=== PATIENT | female | born 1995 | race Caucasian/White ===

== ENCOUNTER 2019-03-31 08:00 | Outpatient (CLI) | payer OTHER ==
[2019-03-31 18:23] LABS: BASOPHILS % (AUTO) 0.6 %; EOSINOPHILS # (AUTO) 0.1 10^3/uL (0.0-0.7); EOSINOPHILS % (AUTO) 1.3 %; HGB - HEMOGLOBIN 12.8 g/dL (12.0-16.0); LYMPHOCYTES # (AUTO) 1.1 10^3/uL (1.5-3.5); LYMPHOCYTES % (AUTO) 20.2 %; MEAN CORPUSCULAR HEMOGLOBIN 27.9 pg (27.0-31.0); MEAN CORPUSCULAR HGB CONC 31.1 g/dL (32.0-36.0); MONOCYTES # (AUTO) 0.5 10^3/uL (0.0-1.0); MONOCYTES % (AUTO) 9.7 %; NEUTROPHILS # (AUTO) 3.6 10^3/uL (1.5-6.6); PLT - PLATELET COUNT 320 10^3/uL (130-450); RED BLOOD COUNT 4.58 10^6/uL (4.20-5.40); RED CELL DISTRIBUTION WIDTH 14.1 % (12.0-15.0); WHITE BLOOD COUNT 5.3 x10^3/uL (4.8-10.8)
[2019-03-31 18:42] LABS: ALBUMIN 4.3 g/dL (3.2-5.5); ALBUMIN/GLOBULIN RATIO 1.2 (1.0-2.2); BILIRUBIN,TOTAL 0.7 mg/dL (0.2-1.0); CALCIUM 8.9 mg/dL (8.5-10.3); CREATININE 0.6 mg/dL (0.4-1.0)
== END 2019-03-31 23:59 | disposition home or self-care (01) ==
LOC: LAB.WCP 08:00
PROVIDERS: ATTEND Physician Assistant
DX: Z00.00 Encounter for general adult medical examination without abnormal findings (principal); R10.13 Epigastric pain
CPT/HCPCS: 36415; 80053; 84443; 85025

== ENCOUNTER 2019-05-11 09:56 | Outpatient (CLI) | payer OTHER ==
--- NOTE | 2019-05-11 16:51 | MRI Report ---
Reason: INTERNAL DERANGEMENT LT KNEE Procedure Date: 05/11/2019 Accession Number: [id number] / [id number] Procedure: MRI - Knee LT W/O CPT Code: Final Report FULL RESULT: EXAM: LEFT KNEE MRI WITHOUT CONTRAST EXAM DATE: 05/11/2019 11:15 AM. CLINICAL HISTORY: Left knee internal derangement. COMPARISON: None. TECHNIQUE: Multiplanar, multisequence T1-weighted and fluid-sensitive sequences of the knee without contrast. Other: None. FINDINGS: Bones: No fractures or subluxations. No marrow edema. No bone lesions. Articular Cartilage: Unremarkable. Medial Meniscus: The medial meniscus is intact. Lateral Meniscus: The lateral meniscus is intact. Cruciate Ligaments: The anterior and posterior cruciate ligaments are intact. Collateral Ligaments: The medial collateral and lateral collateral ligamentous structures are intact. Tendons: The quadriceps, patellar, semimembranosus, and popliteus tendons are unremarkable. Musculature: No edema or fatty atrophy. Other: No effusion. No popliteal cyst.No loose bodies.The medial and lateral retinacula are intact. Minimal edema at the lateral portion of Hoffa's fat pad. IMPRESSION: Mild edema in the lateral portion of Hoffa's fat pad that is nonspecific. It is more inferiorly located than one would typically see with Hoffa's fat pad entrapment syndrome or lateral patellofemoral syndrome. RADIA
== END 2019-05-11 09:57 | disposition home or self-care (01) ==
LOC: DI 09:56
PROVIDERS: ATTEND Physician Assistant
DX: M23.92 Unspecified internal derangement of left knee (principal)

== ENCOUNTER 2020-07-21 09:06 | Emergency (ER) | payer OTHER ==
[2020-07-21] MEDS ORDERED: KETOROLAC 60 MG/2 ML VIAL IM STA (11:01)
[2020-07-21] MEDS ORDERED: oxyCODONE 5 MG TABLET PO STA (11:01)
--- NOTE | 2020-07-21 11:06 | ED Physician Documentation ---
History of Present Illness - Stated complaint Stated Complaint: RT CALF PX - Chief complaint Chief Complaint: Ext Problem - History obtained from History obtained from: Patient - History of Present Illness Timing: Yesterday Pain level max: 6 Pain level now: 5 - Additonal information Additional information: Patient is a 25-year-old female who presents to the emergency department with right calf pain. This started yesterday. Has continued today. States it is the posterior lateral aspect of the calf. Better with rest. Worse with walking and standing. No fevers. No chills. No skin changes. Does not recall any injury. 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 No family history of blood clots. Review of Systems Constitutional: denies: Fever, Chills Ears: denies: Ear pain Nose: denies: Rhinorrhea / runny nose, Congestion Throat: denies: Sore throat Cardiac: denies: Chest pain / pressure, Palpitations Respiratory: denies: Dyspnea, Cough, Wheezing Skin: denies: Rash PD PAST MEDICAL HISTORY - Past Medical History Past Medical History: No - Past Surgical History Past Surgical History: No - Present Medications Home Medications: Ambulatory Orders Medication Instructions Recorded Confirmed Ethinyl Estradiol/Drospirenone 1 each PO DAILY 07/21/20 07/21/20 [Latoya 28 Tablet] HYDROcod/ACETAM 5/325 [[place] 5/325] 1 - 2 ea PO Q6H PRN #14 tablet 07/21/20 Pantoprazole [Protonix] 40 mg PO DAILY 07/21/20 07/21/20 Sertraline [Zoloft] 50 mg PO DAILY 07/21/20 07/21/20 - Allergies Allergies/Adverse Reactions: Allergies Allergy/AdvReac Type Severity Reaction Status Date / Time NSAIDS (Non-Steroidal AdvReac Emesis Verified 07/21/20 09:16 Anti-Inflamma - Living Situation Living Situation: reports: With family Living Arrangement: reports: At home - Social History Does the pt have substance abuse?: No - Family History Family history: reports: Non contributory PD ED PE NORMAL - Vitals Vital signs reviewed: Yes - General General: Alert and oriented X 3, No acute distress - HEENT HEENT: Moist mucous membranes - Neck Neck: Supple, no meningeal sign - Cardiac Cardiac: RRR - Respiratory Respiratory: No respiratory distress, Clear bilaterally - Derm Derm: Warm and dry - Extremities Extremities: Other (R calf - TTP over the R posterior, lateral, superior aspect of the calf. mild soft tissue swelling. NVI.) - Neuro Neuro: Alert and oriented X 3 - Psych Psych: Normal mood, Normal affect Results - Vitals Vitals: Vital Signs - 24 hr 07/21/20 07/21/20 09:11 11:46 Temperature 36.4 C L Heart Rate 101 H 76 Respiratory 16 15 Rate Blood Pressure 144/84 H 127/68 O2 Saturation 100 100 Oxygen O2 Source Room air - Rads (name of study) duplex US RLE Radiology: Prelim report reviewed, EMP read contemporaneously, See rad report (no DVT) PD MEDICAL DECISION MAKING - ED course Complexity details: reviewed results, re-evaluated patient, considered differential, d/w patient ED course: No acute findings on ultrasound. No DVT. Appears to have a small hematoma clinically. Placed in an Addy bandage for comfort. She is ambulating well, but with a mild limp. Neurovascularly intact. We will have her follow-up with her PCP as needed for further care and continue supportive care. Patient counseled regarding signs and symptoms for which I believe and urgent re-evaluation would be necessary. Patient with good understanding of and agreement to plan and is comfortable going home at this time Departure - Departure Disposition: 01 Home, Self Care Clinical Impression: Hematoma Condition: Good Instructions: ED Hematoma Follow-Up: TRACI DYE MD [Primary Care Provider] - Within 1 week Prescriptions: HYDROcod/ACETAM 5/325 [[place] 5/325] 1 - 2 ea PO Q6H PRN #14 tablet PRN Reason: Pain Comments: Return if you worsen. Follow up with your doctor for further care. Your ultrasound does not show a DVT today, there is small hematoma over your calf. Discharge Date/Time: 07/21/20 11:47
[2020-07-21 11:48] VITALS: BP 127/68
--- NOTE | 2020-07-21 11:58 | Ultrasound Report ---
PROCEDURE: Duplex Ext Veins Right INDICATIONS: R calf pain, swelling TECHNIQUE: Real-time imaging, as well as color and pulse Doppler interrogation, were performed of the lower extr emity deep veins from the inguinal ligament to the popliteal fossa. COMPARISON: None. FINDINGS: The deep veins are normally compressible, and free of intraluminal thrombus. Color and pu lse Doppler demonstrate normal phasic intraluminal flow. There is normal augmentation response to di stal compression maneuver. IMPRESSION: No sonographic evidence of deep venous thrombosis in the right lower extremity. Reviewed by: Peterson Benton MD on 07/21/2020 11:56 AM [facility] Approved by: Peterson Benton MD on 07/21/2020 11:56 AM [facility] Station ID: [id number]
== END 2020-07-21 11:47 | disposition home or self-care (01) ==
LOC: ED 09:06
DX: S80.11XA Contusion of right lower leg, initial encounter (principal); X58.XXXA Exposure to other specified factors, initial encounter
CPT/HCPCS: 93971; 99283; 99284; A9270

== ENCOUNTER 2020-11-29 09:19 | Emergency (ER) | payer OTHER ==
[2020-11-29 10:24] LABS: BILIRUBIN,URINE NEGATIVE (NEGATIVE); GLUCOSE, URINE (UA) NEGATIVE (NEGATIVE); KETONES,URINE (UA) NEGATIVE (NEGATIVE); LEUKOCYTE ESTERASE, URINE NEGATIVE (NEGATIVE); NITRITE,URINE NEGATIVE (NEGATIVE); OCCULT BLOOD,URINE TRACE-INTA (NEGATIVE); PH,URINE 6.5 PH (5.0-7.5); PROTEIN,URINE NEGATIVE (NEGATIVE); UROBILINOGEN,URINE 0.2 (NORMAL) E.U./dL (NORMAL)
[2020-11-29 10:27] LABS: CLARITY,URINE CLEAR (CLEAR); HCG UR QUAL NEGATIVE
[2020-11-29 10:50] LABS: BASOPHILS % (AUTO) 0.6 %; EOSINOPHILS # (AUTO) 0.1 10^3/uL (0.0-0.7); EOSINOPHILS % (AUTO) 1.1 %; HCT - HEMATOCRIT 37.8 % (37.0-47.0); HGB - HEMOGLOBIN 11.9 g/dL (12.0-16.0); LYMPHOCYTES # (AUTO) 1.5 10^3/uL (1.5-3.5); LYMPHOCYTES % (AUTO) 24.4 %; MEAN CORPUSCULAR HEMOGLOBIN 26.9 pg (27.0-31.0); MEAN CORPUSCULAR HGB CONC 31.5 g/dL (32.0-36.0); MEAN CORPUSCULAR VOLUME 85.5 fL (81.0-99.0); MONOCYTES # (AUTO) 0.5 10^3/uL (0.0-1.0); MONOCYTES % (AUTO) 7.7 %; NEUTROPHILS # (AUTO) 4.1 10^3/uL (1.5-6.6); NEUTROPHILS % (AUTO) 65.9 %; PLT - PLATELET COUNT 376 10^3/uL (130-450); RED BLOOD COUNT 4.42 10^6/uL (4.20-5.40); RED CELL DISTRIBUTION WIDTH 13.8 % (12.0-15.0); WHITE BLOOD COUNT 6.2 x10^3/uL (4.8-10.8)
--- NOTE | 2020-11-29 10:56 | ED Physician Documentation ---
PD HPI ABD PAIN - Stated complaint Stated Complaint: ABD PX - Chief complaint Chief Complaint: Abd Pain - History obtained from History obtained from: Patient - History of Present Illness Timing - onset: How many days ago (3) Timing - duration: Days (3) Timing - details: Gradual onset, Still present Quality: Cramping, Aching, Pain Location: Periumbilical, RLQ Radiation: No: Lower back, Right flank Improved by: No: Laying still, BM Worsened by: Eating (causes cramps and diarrheal movement) Associated symptoms: Nausea, Diarrhea, Loss of appetite. No: Fever, Vomiting, Melena, Hematochezia Similar symptoms before: Has not had sx before (has been having upper abd/epigastric pains in the past with workup of U/S, CT, EGD. Has not had lower abd pain like current episode in the past.) Recently seen: Not recently seen Review of Systems Constitutional: denies: Fever, Chills Nose: denies: Rhinorrhea / runny nose, Congestion Throat: denies: Sore throat Respiratory: denies: Cough GI: reports: Abdominal Pain, Nausea, Diarrhea. denies: Abdominal Swelling, Vomiting : denies: Dysuria, Discharge Musculoskeletal: denies: Back pain PD PAST MEDICAL HISTORY - Past Medical History Cardiovascular: None Respiratory: None Neuro: None Endocrine/Autoimmune: None GI: Other (epigastric pains for months.) - Past Surgical History Past Surgical History: No - Present Medications Home Medications: Ambulatory Orders Medication Instructions Recorded Confirmed Ethinyl Estradiol/Drospirenone 1 each PO DAILY 07/21/20 11/29/20 [Latoya 28 Tablet] Pantoprazole [Protonix] 40 mg PO DAILY 07/21/20 11/29/20 Sertraline [Zoloft] 50 mg PO DAILY 07/21/20 11/29/20 HYDROcod/ACETAM 5/325 [Ronco 5/325] 1 ea PO Q6H PRN #15 tablet 11/29/20 Ondansetron Odt [Zofran] 4 mg TL Q6H PRN #10 tablet 11/29/20 - Allergies Allergies/Adverse Reactions: Allergies Allergy/AdvReac Type Severity Reaction Status Date / Time NSAIDS (Non-Steroidal AdvReac Emesis Verified 11/29/20 09:34 Anti-Inflamma - Social History Does the pt smoke?: No Smoking Status: Never smoker Does the pt have substance abuse?: No PD ED PE NORMAL - Vitals Vital signs reviewed: Yes - General General: Alert and oriented X 3, Well developed/nourished, Other (appears in pain) - Neck Neck: Supple, no meningeal sign, No adenopathy - Cardiac Cardiac: RRR, No murmur - Respiratory Respiratory: Clear bilaterally - Abdomen Abdomen: Normal bowel sounds, Soft, Non distended, No organomegaly, Other (tender periumbilical and RLQ area with guarding and some rebound. ) - Female Female : Deferred - Rectal Rectal: Deferred - Back Back: No CVA TTP - Derm Derm: Normal color, Warm and dry - Neuro Neuro: Alert and oriented X 3, No motor deficit, Normal speech Results - Vitals Vitals: Vital Signs - 24 hr 11/29/20 11/29/20 11/29/20 09:31 11:34 13:00 Temperature 36.5 C Heart Rate 96 88 64 Respiratory 18 16 15 Rate Blood Pressure 131/74 H 93/75 100/60 O2 Saturation 100 96 93 11/29/20 14:43 Temperature Heart Rate 80 Respiratory 14 Rate Blood Pressure 90/60 O2 Saturation 100 Oxygen O2 Source Room air - Labs Labs: Laboratory Tests 11/29/20 11/29/20 11/29/20 10:12 10:27 10:27 WBC 6.2 RBC 4.42 Hgb 11.9 L Hct 37.8 MCV 85.5 MCH 26.9 L MCHC 31.5 L RDW 13.8 Plt Count 376 MPV 9.0 Neut # (Auto) 4.1 Lymph # (Auto) 1.5 Petroleum # (Auto) 0.5 Eos # (Auto) 0.1 Baso # (Auto) 0.0 Absolute Nucleated RBC 0.00 Nucleated RBC % 0.0 Sodium 136 Potassium 3.9 Chloride 105 Carbon Dioxide 23 Anion Gap 8.0 BUN 12 Creatinine 0.7 Estimated GFR (MDRD) 100 Glucose 102 H Calcium 9.1 Total Bilirubin 0.4 AST 21 ALT 17 Alkaline Phosphatase 61 Total Protein 7.8 Albumin 3.6 Globulin 4.2 Albumin/Globulin Ratio 0.9 L Lipase 44 Urine Color YELLOW Urine Clarity CLEAR Urine pH 6.5 Ur Specific [place] 1.015 Urine Protein NEGATIVE Urine Glucose (UA) NEGATIVE Urine Ketones NEGATIVE Urine Occult Blood TRACE-INTA Urine Nitrite NEGATIVE Urine Bilirubin NEGATIVE Urine Urobilinogen 0.2 (NORMAL) Ur Leukocyte Esterase NEGATIVE Ur Microscopic Review NOT INDICATED Urine Culture Comments NOT INDICATED Urine HCG, Qual NEGATIVE - Rads (name of study) abd/pelvic CT Radiology: Prelim report reviewed (normal appendix. SMall 2 mm stone in left kidney. No ureteral stones. ), See rad report PD MEDICAL DECISION MAKING - ED course Complexity details: reviewed results (normal appendix, no acute focal process. ), re-evaluated patient (improved with IV meds, but still with some general lower abd tender. ), considered differential (concern for appy, other acute process, given the peritoneal findings. ), d/w patient Departure - Departure Disposition: 01 Home, Self Care Clinical Impression: Lower abdominal pain, Gastroenteritis, Nausea Diarrhea Qualifiers: Diarrhea type: unspecified type Qualified Code(s): R19.7 - Diarrhea, unspecified Condition: Stable Record reviewed to determine appropriate education?: Yes Instructions: ED Abdominal Pain Unkn Cause Follow-Up: TRACI DYE MD [Primary Care Provider] - Prescriptions: HYDROcod/ACETAM 5/325 [Ronco 5/325] 1 ea PO Q6H PRN #15 tablet PRN Reason: Pain Ondansetron Odt [Zofran] 4 mg TL Q6H PRN #10 tablet PRN Reason: Nausea / Vomiting Comments: Your CT scan shows a normal appendix and no other acute abnormal process on the scan. Given your lower abdominal pains along with some loose stool/diarrhea, it would sound like an irritation of the gastrointestinal track. This would typically look normal on CT and often on labs. We presume you have a gastroenteritis that could be food related or sometimes viral. Commonly this would last 2 to 3 days and improved. We can treated with ondansetron for nausea and Tylenol or hydrocodone if needed for pains and cramps. You could use Imodium if needed for loose stool/diarrhea. Off work today and tomorrow. See how much your improved over that timeframe. Return if worsening. Follow-up with your primary care if persists beyond a few days. I am prescribing a short course of narcotic pain medication for you. These are potentially dangerous and addictive medications that should be used carefully. These medications may constipate you. Take an xsaw-pjp-hytqhms stool softener such as docusate twice daily with plenty of water while taking these medications. If you go 24 hours without a bowel movement, take [id number] MiraLAX, per package instructions. Do not drink or drive while taking these medications. If you received narcotic or sedating medications while in the emergency department do not drive for 24 hours. Store this medication in a safe, secure place and out of reach of children. It is a violation of federal law to give or sell this medication to another person or to use in a manner other than prescribed. The ED will not refill narcotic prescriptions, including prescriptions lost or stolen. You can dispose of unwanted medications at the [facility]'s office or at several pharmacies such as [facility] Forms: Activity restrictions Discharge Date/Time: 11/29/20 14:43
[2020-11-29 11:01] LABS: ALBUMIN 3.6 g/dL (3.2-5.5); ALBUMIN/GLOBULIN RATIO 0.9 (1.0-2.2); BILIRUBIN,TOTAL 0.4 mg/dL (0.2-1.0); CALCIUM 9.1 mg/dL (8.5-10.3); CREATININE 0.7 mg/dL (0.4-1.0); POTASSIUM 3.9 mmol/L (3.5-5.0); TOTAL PROTEIN 7.8 g/dL (6.7-8.2)
[2020-11-29] MEDS ORDERED: SODIUM CHLORIDE 0.9% 1,000 ML IV STA (11:12)
[2020-11-29] MEDS ORDERED: ONDANSETRON 4 MG/2 ML VIAL IVP STA (11:12)
[2020-11-29] MEDS ORDERED: MORPHINE 2 MG/ML CARPUJECT IVP STA (11:12)
[2020-11-29] MEDS ORDERED: IOVERSOL 320 100 ML VIAL IVP ONE ×2 (11:41→13:20)
--- NOTE | 2020-11-29 12:42 | CT Report ---
PROCEDURE: Abdomen/Pelvis W INDICATIONS: RLQ abd pain for 3 days CONTRAST: IV CONTRAST: Optiray 320 ml: 100 PO CONTRAST: *NO PO CONTRAST TECHNIQUE: After the administration of intravenous contrast, 5 mm thick sections acquired from the diaphragms to the symphysis. 5 mm thick coronal and sagittal reformats were acquired. For radiation dose reducti on, the following was used: automated exposure control, adjustment of mA and/or kV according to storm ent size. COMPARISON: None. FINDINGS: Image quality: Excellent. ABDOMEN: Lung bases: Lung bases are clear. Heart size is normal. Urinary tract: The right kidney and ureter are normal. No hydronephrosis or urolithiasis on the right . There is a nonobstructing 2 mm calculus in the left interpolar region (series 3 image 26). No other renal or ureteral calculus on the left. No hydroureteronephrosis in either kidney. Solid organs: Liver and spleen are normal in size and enhancement. Gallbladder is normal. Biliary system is non dilated. Pancreas enhances normally. No adrenal nodules. Peritoneum and bowel: Normal appendix. No periappendiceal inflammatory changes. Bowel loops demonstra te normal wall thickness and caliber. No free fluid or air. Nodes and vessels: No retroperitoneal or mesenteric adenopathy by size criteria. Aorta and inferior vena cava are normal in size. Miscellaneous: No ventral hernias. PELVIS: Genitourinary: Bladder wall thickness is normal. Miscellaneous: No inguinal hernias or adenopathy. Bones: No suspicious bony lesions. No vertebral body compression fractures. IMPRESSION: Nonobstructing 2 mm calculus in the left kidney. Otherwise normal study. Reviewed by: Patrick Weir MD on 11/29/2020 12:41 PM PDT Approved by: Patrick Weir MD on 11/29/2020 12:41 PM PDT Station ID: [id number]
[2020-11-29] MEDS ORDERED: HYDROmorphone 1 MG/ML CARPUJECT IVP STA (13:38)
[2020-11-29] MEDS ORDERED: LOPERAMIDE 2 MG CAPSULE PO STA (13:38)
[2020-11-29] MEDS ORDERED: DROPERIDOL 5 MG/2 ML VIAL IVP STA (13:38)
[2020-11-29] MEDS ORDERED: ACETAMINOPHEN 325 MG TABLET PO STA (13:38)
[2020-11-29 14:45] VITALS: BP 90/60
== END 2020-11-29 14:43 | disposition home or self-care (01) ==
LOC: ED 09:19
DX: N20.0 Calculus of kidney (principal); K52.9 Noninfective gastroenteritis and colitis, unspecified
CPT/HCPCS: 36415; 74177; 80053; 81003; 81025; 83690; 85025; 96374; 96375; 99284; 99285; A9270; J1170; Q9967; 81001; 87086

== ENCOUNTER 2021-03-18 11:05 | Emergency (ER) | payer OTHER ==
--- NOTE | 2021-03-18 11:25 | ED Physician Documentation ---
PD HPI ABD PAIN - Stated complaint Stated Complaint: LT FLANK PAIN - Chief complaint Chief Complaint: Abd Pain - History obtained from History obtained from: Patient - Additional information Additional information: This is a 26-year-old woman who developed sudden onset left flank pain which is severe since yesterday. Associated with mild nausea sweats and chills but no fevers. She is never had this before, but she has had a lot of GI and this issues in the past for work-up of those, she had a CT done here November 29 of this year which did show a nonobstructing 2 mm left nephrolithiasis. Review of Systems Ten Systems: 10 systems reviewed and negative Constitutional: reports: Chills, Sweats Ears: reports: Reviewed and negative Throat: reports: Reviewed and negative Cardiac: reports: Reviewed and negative PD PAST MEDICAL HISTORY - Past Medical History Cardiovascular: None Respiratory: None Neuro: None Endocrine/Autoimmune: None GI: Other (epigastric pains for months.) - Past Surgical History Past Surgical History: No - Present Medications Home Medications: Ambulatory Orders Medication Instructions Recorded Confirmed Ethinyl Estradiol/Drospirenone 1 each PO DAILY 07/21/20 11/29/20 [Latoya 28 Tablet] Pantoprazole [Protonix] 40 mg PO DAILY 07/21/20 11/29/20 Sertraline [Zoloft] 50 mg PO DAILY 07/21/20 11/29/20 HYDROcod/ACETAM 5/325 [[place] 5/325] 1 ea PO Q6H PRN #15 tablet 11/29/20 Ondansetron Odt [Zofran] 4 mg TL Q6H PRN #10 tablet 11/29/20 Ondansetron Odt [Zofran] 4 mg TL Q6H PRN #10 tablet 03/18/21 Oxycodone HCl/Acetaminophen 1 - 2 each PO Q6H PRN #14 tablet 03/18/21 [Percocet 5-325 mg Tablet] - Allergies Allergies/Adverse Reactions: Allergies Allergy/AdvReac Type Severity Reaction Status Date / Time NSAIDS (Non-Steroidal AdvReac Emesis Verified 03/18/21 11:15 Anti-Inflamma - Social History Does the pt smoke?: No Smoking Status: Never smoker Does the pt have substance abuse?: No PD ED PE NORMAL - Vitals Vital signs reviewed: Yes - General General: Alert and oriented X 3, Other (She appears uncomfortable) - HEENT HEENT: PERRL, EOMI - Neck Neck: Supple, no meningeal sign, No bony TTP - Cardiac Cardiac: RRR, No murmur - Respiratory Respiratory: No respiratory distress, Clear bilaterally - Abdomen Abdomen: Normal bowel sounds, Soft, Non tender - Back Back: No CVA TTP, No spinal TTP - Derm Derm: Normal color, Warm and dry - Extremities Extremities: No edema, No calf tenderness / cord - Neuro Neuro: Alert and oriented X 3, Normal speech Results - Vitals Vitals: Vital Signs - 24 hr 03/18/21 11:10 Temperature 36.8 C Heart Rate 91 Respiratory 16 Rate Blood Pressure 119/72 O2 Saturation 99 Oxygen O2 Source Room air - Labs Labs: Laboratory Tests 03/18/21 03/18/21 03/18/21 11:20 12:05 12:05 WBC 6.3 RBC 4.44 Hgb 12.2 Hct 37.5 MCV 84.5 MCH 27.5 MCHC 32.5 RDW 13.7 Plt Count 409 MPV 8.9 Neut # (Auto) 3.9 Lymph # (Auto) 1.9 Lynn # (Auto) 0.4 Eos # (Auto) 0.1 Baso # (Auto) 0.1 Absolute Nucleated RBC 0.00 Nucleated RBC % 0.0 Sodium 137 Potassium 3.9 Chloride 106 Carbon Dioxide 21 Anion Gap 10.0 BUN 9 Creatinine 0.6 Estimated GFR (MDRD) 119 Glucose 90 Calcium 9.2 Total Bilirubin 0.3 AST 15 ALT 15 Alkaline Phosphatase 57 Total Protein 7.8 Albumin 3.6 Globulin 4.2 Albumin/Globulin Ratio 0.9 L Lipase 36 Urine Color YELLOW Urine Clarity SL. CLOUDY Urine pH 6.0 Ur Specific [place] 1.010 Urine Protein NEGATIVE Urine Glucose (UA) NEGATIVE Urine Ketones NEGATIVE Urine Occult Blood NEGATIVE Urine Nitrite NEGATIVE Urine Bilirubin NEGATIVE Urine Urobilinogen 0.2 (NORMAL) Ur Leukocyte Esterase SMALL H Urine RBC 0-5 Urine WBC 6-10 H Ur Squamous Epith Cells MOD Squamous H Urine Bacteria Few Ur Microscopic Review INDICATED Urine Culture Comments NOT INDICATED Urine HCG, Qual NEGATIVE PD MEDICAL DECISION MAKING - ED course ED course: She presents with pain very consistent with renal colic, given that she had a CT done a few months ago with a 2 mm nephrolith I do not think further imaging needs to be done. She was feeling all but pain-free after a milligram of Dilau did. The patient was counseled as to the diagnosis and need for follow-up. I counseled the patient with regard to signs and symptoms that would necessitate an urgent reevaluation in the emergency department. They understand they are welcome to return at any time if worse or if not improving as expected. This document was made in part using voice recognition software. While efforts are made to proofread this documents, sound alike and grammatical errors may occur. I am prescribing a short course of short-acting opioid pain medication for this patient. 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 I have discussed that the opioids are for short term therapy only, and will not be refilled from the ED. Departure - Departure Disposition: 01 Home, Self Care Clinical Impression: Renal colic Condition: Good Record reviewed to determine appropriate education?: Yes Instructions: ED Stone Renal W Colic Prescriptions: Oxycodone HCl/Acetaminophen [Percocet 5-325 mg Tablet] 1 - 2 each PO Q6H PRN #14 tablet PRN Reason: pain Ondansetron Odt [Zofran] 4 mg TL Q6H PRN #10 tablet PRN Reason: Nausea / Vomiting Comments: Prescription sent electronically to [facility] in [place]. If you are able to catch the stone in the urine strainers I gave you, presented to your physician for evaluation. Return for new or worsening symptoms. Follow-up with your physician in follow-up regardless. I am prescribing a short course of narcotic pain medication for you. These are potentially dangerous and addictive medications that should be used carefully. These medications may constipate you. Take an dqld-ese-vvvqgok stool softener (docusate) twice daily with plenty of water while taking these medications. If you go 24 hours without a bowel movement, take cziz-wwm-ieflzyq miralax, per package instructions. Do not drink or drive while taking these medications. If you received narcotic or sedating medications while in the emergency department, do not drive for 24 hours. Store this medication in a safe, secure place and out of reach of children. It is a violation of federal law to give or sell this medication to another person or to use in a manner other than prescribed. The ED will not refill narcotic prescriptions, including prescriptions lost or stolen. To dispose of unwanted medications: 1. [facility] at [address] in [place] has a medication drop box. They accept prescription medications (in pill form) Saturday through Saturday 9:00 a.m. to 5:00 p.m. 2. [facility] accepts prescription medications (in pill form only) for disposal year round. Call for more information. 3. Contact the [facility] for the next [facility] sponsored prescription drug collection event. , [phone], or [phone]; Note that many narcotic pain relievers also contain Tylenol/acetaminophen. Please ensure that your total dose of acetaminophen from all sources does not exceed 3 g (3000 mg) per day.
[2021-03-18 11:54] LABS: BILIRUBIN,URINE NEGATIVE (NEGATIVE); GLUCOSE, URINE (UA) NEGATIVE (NEGATIVE); KETONES,URINE (UA) NEGATIVE (NEGATIVE); LEUKOCYTE ESTERASE, URINE SMALL (NEGATIVE); NITRITE,URINE NEGATIVE (NEGATIVE); OCCULT BLOOD,URINE NEGATIVE (NEGATIVE); PROTEIN,URINE NEGATIVE (NEGATIVE); UROBILINOGEN,URINE 0.2 (NORMAL) E.U./dL (NORMAL)
[2021-03-18] MEDS: HYDROmorphone 1 MG/ML CARPUJECT IVP STA (11:56)
[2021-03-18] MEDS: ONDANSETRON 4 MG/2 ML VIAL IVP STA (11:56)
[2021-03-18 11:58] LABS: CLARITY,URINE SL. CLOUDY (CLEAR); HCG UR QUAL NEGATIVE
[2021-03-18 12:06] LABS: BACTERIA,URINE Few /HPF (None Seen); RBC,URINE 0-5 /HPF (0-5); SQUAMOUS EPITHELIAL CELL,UR MOD Squamous (<= Few)
[2021-03-18 12:14] LABS: BASOPHILS # (AUTO) 0.1 10^3/uL (0.0-0.1); BASOPHILS % (AUTO) 0.8 %; EOSINOPHILS # (AUTO) 0.1 10^3/uL (0.0-0.7); EOSINOPHILS % (AUTO) 1.7 %; HCT - HEMATOCRIT 37.5 % (37.0-47.0); HGB - HEMOGLOBIN 12.2 g/dL (12.0-16.0); LYMPHOCYTES # (AUTO) 1.9 10^3/uL (1.5-3.5); LYMPHOCYTES % (AUTO) 29.3 %; MEAN CORPUSCULAR HEMOGLOBIN 27.5 pg (27.0-31.0); MEAN CORPUSCULAR HGB CONC 32.5 g/dL (32.0-36.0); MEAN CORPUSCULAR VOLUME 84.5 fL (81.0-99.0); MEAN PLATELET VOLUME 8.9 fL (7.9-10.8); MONOCYTES # (AUTO) 0.4 10^3/uL (0.0-1.0); MONOCYTES % (AUTO) 6.8 %; NEUTROPHILS # (AUTO) 3.9 10^3/uL (1.5-6.6); NEUTROPHILS % (AUTO) 61.1 %; PLT - PLATELET COUNT 409 10^3/uL (130-450); RED BLOOD COUNT 4.44 10^6/uL (4.20-5.40); RED CELL DISTRIBUTION WIDTH 13.7 % (12.0-15.0); WHITE BLOOD COUNT 6.3 x10^3/uL (4.8-10.8)
[2021-03-18 12:23] LABS: ALBUMIN 3.6 g/dL (3.2-5.5); ALBUMIN/GLOBULIN RATIO 0.9 (1.0-2.2); BILIRUBIN,TOTAL 0.3 mg/dL (0.2-1.0); CALCIUM 9.2 mg/dL (8.5-10.3); CREATININE 0.6 mg/dL (0.4-1.0); POTASSIUM 3.9 mmol/L (3.5-5.0); TOTAL PROTEIN 7.8 g/dL (6.7-8.2)
[2021-03-18 13:02] VITALS: BP 115/68
== END 2021-03-18 13:01 | disposition home or self-care (01) ==
LOC: ED 11:05
DX: N23 Unspecified renal colic (principal)
CPT/HCPCS: 36415; 80053; 81001; 81025; 83690; 85025; 96374; 99283; 99284; J1170; 81003; 87086

== ENCOUNTER 2021-06-15 10:54 | Outpatient (CLI) | payer OTHER | END 2021-06-15 10:55 | disposition critical access hospital (66) | LOC: EMS 10:54 | DX: R07.89 Other chest pain (principal); R42 Dizziness and giddiness | CPT/HCPCS: A0425; A0429 ==

== ENCOUNTER 2021-06-15 11:15 | Emergency (ER) | payer OTHER ==
--- NOTE | 2021-06-15 11:29 | ED Physician Documentation ---
PD HPI CHEST PAIN - Stated complaint Stated Complaint: CHEST PRESSURE - Chief complaint Chief Complaint: Cardiac - History obtained from History obtained from: Patient - History of Present Illness Timing - onset: Yesterday (left chest pain onset yesterday, but has had 4-5 days of fevers, aches, cough, dyspnea and feeling of chest tightness.) Timing - onset during: Light activity Timing - duration: Days Timing - details: Gradual onset, Still present Quality: Tightness, Sharp, Pain Location: Left chest (parasternal area and lower costal margin, worse with deep breathing, cough, and palpation.) Radiation: No: Jaw, Neck, Back Worsened by: Inspiration, Movement, Palpation Associated symptoms: Shortness of air, Cough. No: Nausea, Feeling faint / dizzy Similar symptoms before: Has not had sx before Recently seen: Clinic (went to walk in clinic and referred to ER for further evaluation.) Review of Systems Constitutional: reports: Fever, Chills, Myalgias Nose: reports: Congestion. denies: Rhinorrhea / runny nose Throat: denies: Sore throat Cardiac: reports: Chest pain / pressure. denies: Palpitations Respiratory: reports: Dyspnea, Cough, Wheezing GI: reports: Nausea. denies: Abdominal Pain, Vomiting Skin: denies: Rash Neurologic: reports: Generalized weakness. denies: Near syncope, Altered mental status, Headache PD PAST MEDICAL HISTORY - Past Medical History Cardiovascular: None Respiratory: None Neuro: None Endocrine/Autoimmune: None GI: Other (epigastric pains for months.) - Past Surgical History Past Surgical History: No - Present Medications Home Medications: Ambulatory Orders Medication Instructions Recorded Confirmed Ethinyl Estradiol/Drospirenone 1 each PO DAILY 07/21/20 11/29/20 [Latoya 28 Tablet] Pantoprazole [Protonix] 40 mg PO DAILY 07/21/20 11/29/20 Sertraline [Zoloft] 50 mg PO DAILY 07/21/20 11/29/20 HYDROcod/ACETAM 5/325 [[place] 5/325] 1 ea PO Q6H PRN #15 tablet 11/29/20 Ondansetron Odt [Zofran] 4 mg TL Q6H PRN #10 tablet 11/29/20 Ondansetron Odt [Zofran] 4 mg TL Q6H PRN #10 tablet 03/18/21 Oxycodone HCl/Acetaminophen 1 - 2 each PO Q6H PRN #14 tablet 03/18/21 [Percocet 5-325 mg Tablet] Albuterol Sulf [Ventolin Hfa 2 - 3 puffs INH QID 10 Days #1 06/15/21 Inhaler] inhaler HYDROcod/ACETAM 5/325 [Spring 5/325] 1 ea PO Q6H PRN #15 tablet 06/15/21 Ondansetron Odt [Zofran] 4 mg TL Q6H PRN #10 tablet 06/15/21 dexAMETHasone [Decadron] 4 mg PO DAILY #5 tablet 06/15/21 - Allergies Allergies/Adverse Reactions: Allergies Allergy/AdvReac Type Severity Reaction Status Date / Time NSAIDS (Non-Steroidal AdvReac Emesis Verified 06/15/21 11:25 Anti-Inflamma - Social History Does the pt smoke?: No Smoking Status: Never smoker Does the pt have substance abuse?: No PD ED PE NORMAL - Vitals Vital signs reviewed: Yes - General General: Alert and oriented X 3, No acute distress, Well developed/nourished - HEENT HEENT: Ears normal, Moist mucous membranes, Pharynx benign - Neck Neck: Supple, no meningeal sign, No adenopathy - Cardiac Cardiac: RRR, No murmur - Respiratory Respiratory: Clear bilaterally, Other (chest wall tender left lower parasternal and left costal margin. ) - Abdomen Abdomen: Soft, Non tender Results - Vitals Vitals: Vital Signs - 24 hr 06/15/21 06/15/21 06/15/21 11:22 11:30 12:49 Temperature 36.8 C Heart Rate 76 83 75 Respiratory 20 12 17 Rate Blood Pressure 127/78 119/90 H 116/75 O2 Saturation 100 100 100 06/15/21 06/15/21 06/15/21 15:14 15:54 15:58 Temperature 37.1 C 37.1 C Heart Rate 80 87 90 Respiratory 20 22 Rate Blood Pressure 118/77 O2 Saturation 99 Oxygen O2 Source Room air - EKG (time done) 11:17 Rate: Rate (enter#) (76) Rhythm: NSR [place]: Normal Intervals: Normal CO QRS: Normal Ischemia: Normal ST segments. No: ST elevation c/w ischemia, ST depression - Labs Labs: Laboratory Tests 06/15/21 06/15/21 06/15/21 12:05 12:35 12:35 WBC 7.7 RBC 4.43 Hgb 11.9 L Hct 36.7 L MCV 82.8 MCH 26.9 L MCHC 32.4 RDW 14.5 Plt Count 392 MPV 8.6 Neut # (Auto) 5.0 Lymph # (Auto) 2.1 [place] # (Auto) 0.5 Eos # (Auto) 0.1 Baso # (Auto) 0.1 Absolute Nucleated RBC 0.00 Nucleated RBC % 0.0 Sodium 133 L Potassium 3.9 Chloride 100 L Carbon Dioxide 22 Anion Gap 11.0 BUN 10 Creatinine 0.8 Estimated GFR (MDRD) 85 L Glucose 96 Calcium 8.7 Total Bilirubin 0.3 AST 18 ALT 15 Alkaline Phosphatase 59 Troponin I High Sens B-Natriuretic Peptide Total Protein 8.0 Albumin 3.5 Globulin 4.5 H Albumin/Globulin Ratio 0.8 L Lipase 34 Nasal Adenovirus (PCR) NOT DETECTED Nasal B. parapertussis DNA (PCR) NOT DETECTED Nasal Coronavir 229E PCR NOT DETECTED Nasal Coronavir HKU1 PCR NOT DETECTED Nasal Coronavir NL63 PCR NOT DETECTED Nasal Coronavir OC43 PCR NOT DETECTED Nasal Enterovir/Rhinovir PCR NOT DETECTED Nasal Influenza B PCR NOT DETECTED Nasal Influenza A PCR NOT DETECTED Nasal Parainfluen 1 PCR NOT DETECTED Nasal Parainfluen 2 PCR NOT DETECTED Nasal Parainfluen 3 PCR NOT DETECTED Nasal Parainfluen 4 PCR NOT DETECTED Nasal RSV (PCR) NOT DETECTED Nasal B.pertussis DNA PCR NOT DETECTED Nasal C.pneumoniae (PCR) NOT DETECTED Ronen Human Metapneumo PCR NOT DETECTED Nasal M.pneumoniae (PCR) NOT DETECTED Nasal SARS-CoV-2 (PCR) NOT DETECTED 06/15/21 06/15/21 12:35 12:35 WBC RBC Hgb Hct MCV MCH MCHC RDW Plt Count MPV Neut # (Auto) Lymph # (Auto) [place] # (Auto) Eos # (Auto) Baso # (Auto) Absolute Nucleated RBC Nucleated RBC % Sodium Potassium Chloride Carbon Dioxide Anion Gap BUN Creatinine Estimated GFR (MDRD) Glucose Calcium Total Bilirubin AST ALT Alkaline Phosphatase Troponin I High Sens < 2.3 L B-Natriuretic Peptide 21 Total Protein Albumin Globulin Albumin/Globulin Ratio Lipase Nasal Adenovirus (PCR) Nasal B. parapertussis DNA (PCR) Nasal Coronavir 229E PCR Nasal Coronavir HKU1 PCR Nasal Coronavir NL63 PCR Nasal Coronavir OC43 PCR Nasal Enterovir/Rhinovir PCR Nasal Influenza B PCR Nasal Influenza A PCR Nasal Parainfluen 1 PCR Nasal Parainfluen 2 PCR Nasal Parainfluen 3 PCR Nasal Parainfluen 4 PCR Nasal RSV (PCR) Nasal B.pertussis DNA PCR Nasal C.pneumoniae (PCR) Ronen Human Metapneumo PCR Nasal M.pneumoniae (PCR) Nasal SARS-CoV-2 (PCR) - Rads (name of study) chest xray Radiology: Prelim report reviewed (no acute process), See rad report PD MEDICAL DECISION MAKING - ED course Complexity details: re-evaluated patient (improved with meds and some lessening of chest pressure with MDI. ), considered differential (sounds like URI with c ough and now costochondral chest pain and chest tightness. NO calf tender nor swelling. Wells negative. ), d/w patient Departure - Departure Disposition: 01 Home, Self Care Clinical Impression: Upper respiratory infection, Chest pain Condition: Stable Record reviewed to determine appropriate education?: Yes Instructions: ED Chest Pain Costochondritis Prescriptions: dexAMETHasone [Decadron] 4 mg PO DAILY #5 tablet HYDROcod/ACETAM 5/325 [Spring 5/325] 1 ea PO Q6H PRN #15 tablet PRN Reason: Pain Albuterol Sulf [Ventolin Hfa Inhaler] 2 - 3 puffs INH QID 10 Days #1 inhaler Ondansetron Odt [Zofran] 4 mg TL Q6H PRN #10 tablet PRN Reason: Nausea / Vomiting Comments: Test x-ray is clear without any signs of pneumonia nor collapsed lung. Your EKG is normal as your blood test showed no signs of heart muscle inflammation or injury or heart attack. Your basic blood tests are good as well. Your respiratory viral panel is negative for Covid and other major viruses. Presume more of a common chest cold type of process with your current symptoms. If persistent you can do is get a repeat Covid test but the current one negative is fairly accurate. I presume some inflammation in the chest wall associated from illness and coughing. For this he can use Decadron steroid anti-inflammatory. Also add Tylenol 4 times a day for pain. You can use hydrocodone in addition every 4-6 hours for worse pain. Use the albuterol inhaler 2 to 3 puffs 4 times a day regularly for the next several days to week to help with the chest tightness and breathing. Ondansetron if needed for nausea. I transmitted prescriptions to the pharmacy. I am prescribing a short course of narcotic pain medication for you. These are potentially dangerous and addictive medications that should be used carefully. These medications may constipate you. Take an [id number] stool softener such as docusate twice daily with plenty of water while taking these medications. If you go 24 hours without a bowel movement, take [id number] MiraLAX, per package instructions. Do not drink or drive while taking these medications. If you received narcotic or sedating medications while in the emergency department do not drive for 24 hours. Store this medication in a safe, secure place and out of reach of children. It is a violation of federal law to give or sell this medication to another person or to use in a manner other than prescribed. The ED will not refill narcotic prescriptions, including prescriptions lost or stolen. You can dispose of unwanted medications at the [facility]'s office or at several pharmacies such as [facility]. Forms: Activity restrictions Discharge Date/Time: 06/15/21 15:58
--- NOTE | 2021-06-15 12:23 | XRAY Report ---
PROCEDURE: Chest 1 View X-Ray INDICATIONS: Chest Pain, left side with cough TECHNIQUE: One view of the chest was acquired. COMPARISON: None. FINDINGS: Surgical changes and devices: None. Lungs and pleura: No pleural effusions or pneumothorax. Lungs are clear. Mediastinum: Mediastinal contours appear normal. Heart size is normal. Bones and chest wall: No suspicious bony lesions. Overlying soft tissues appear unremarkable. IMPRESSION: No acute cardiopulmonary pathology. Reviewed by: Harjeet Faustin MD on 06/15/2021 12:22 PM [facility] Approved by: Harjeet Faustin MD on 06/15/2021 12:22 PM [facility] Station ID: [id number]
[2021-06-15 12:44] LABS: BASOPHILS # (AUTO) 0.1 10^3/uL (0.0-0.1); BASOPHILS % (AUTO) 0.8 %; EOSINOPHILS # (AUTO) 0.1 10^3/uL (0.0-0.7); EOSINOPHILS % (AUTO) 0.9 %; HCT - HEMATOCRIT 36.7 % (37.0-47.0); HGB - HEMOGLOBIN 11.9 g/dL (12.0-16.0); LYMPHOCYTES # (AUTO) 2.1 10^3/uL (1.5-3.5); LYMPHOCYTES % (AUTO) 26.7 %; MEAN CORPUSCULAR HEMOGLOBIN 26.9 pg (27.0-31.0); MEAN CORPUSCULAR HGB CONC 32.4 g/dL (32.0-36.0); MEAN CORPUSCULAR VOLUME 82.8 fL (81.0-99.0); MEAN PLATELET VOLUME 8.6 fL (7.9-10.8); MONOCYTES # (AUTO) 0.5 10^3/uL (0.0-1.0); MONOCYTES % (AUTO) 6.2 %; NEUTROPHILS % (AUTO) 65.1 %; PLT - PLATELET COUNT 392 10^3/uL (130-450); RED BLOOD COUNT 4.43 10^6/uL (4.20-5.40); RED CELL DISTRIBUTION WIDTH 14.5 % (12.0-15.0); WHITE BLOOD COUNT 7.7 x10^3/uL (4.8-10.8)
[2021-06-15] MEDS: ONDANSETRON 4 MG/2 ML VIAL IVP STA (12:45)
[2021-06-15] MEDS: HYDROmorphone 1 MG/ML CARPUJECT IVP STA (12:46)
[2021-06-15] MEDS: SODIUM CHLORIDE 0.9% 1,000 ML IV STA (12:46)
[2021-06-15] MEDS: KETOROLAC 30 MG/ML VIAL IVP STA (12:46)
[2021-06-15 13:01] LABS: ALBUMIN 3.5 g/dL (3.2-5.5); ALBUMIN/GLOBULIN RATIO 0.8 (1.0-2.2); BILIRUBIN,TOTAL 0.3 mg/dL (0.2-1.0); CALCIUM 8.7 mg/dL (8.5-10.3); CREATININE 0.8 mg/dL (0.4-1.0); POTASSIUM 3.9 mmol/L (3.5-5.0)
[2021-06-15 14:21] LABS: B. PARAPERTUSSIS- RESP PCR PAN NOT DETECTED; B. PERTUSSIS- RESP PCR PANEL NOT DETECTED; C. PNEUMONIAE- RESP PCR PANEL NOT DETECTED; CORONAVIRUS 229E-RESP PCR NOT DETECTED; CORONAVIRUS HKU1-RESP PCR NOT DETECTED; CORONAVIRUS NL63-RESP PCR NOT DETECTED; CORONAVIRUS OC43-RESP PCR NOT DETECTED; HUMAN METAPNEUMOVIRUS NOT DETECTED; INFLUENZA A- RESP PCR PANEL NOT DETECTED; INFLUENZA B - RESP PCR PANEL NOT DETECTED; M. PNEUMONIAE- RESP PCR PANEL NOT DETECTED; PARAINFLUENZA VIRUS 1 NOT DETECTED; PARAINFLUENZA VIRUS 2 NOT DETECTED; PARAINFLUENZA VIRUS 3 NOT DETECTED; PARAINFLUENZA VIRUS 4 NOT DETECTED; RHINOVIRUS/ENTEROVIRUS NOT DETECTED; RSV- RESP PCR PANEL NOT DETECTED; SARS-CoV-2 -RESP PCR PANEL NOT DETECTED
[2021-06-15] MEDS ORDERED: HYDROmorphone 1 MG/ML CARPUJECT IVP STA (14:36)
[2021-06-15] MEDS ORDERED: DEXAMETHASONE 10 MG/ML VIAL IVP STA (14:36)
[2021-06-15] MEDS: ALBUTEROL 1 PUFF INH STA (15:14)
[2021-06-15 15:55] VITALS: BP 118/77
== END 2021-06-15 15:58 | disposition home or self-care (01) ==
LOC: EDUNIT# → ED 11:15
DX: J06.9 Acute upper respiratory infection, unspecified (principal); Z20.822 Contact with and (suspected) exposure to COVID-19
CPT/HCPCS: 0202U; 36415; 71045; 80053; 83690; 83880; 84484; 85025; 93005; 94640; 96374; 96375; 99284; J1170

== ENCOUNTER 2021-07-01 14:43 | Emergency (ER) | payer OTHER ==
[2021-07-01] MEDS ORDERED: DROPERIDOL 5 MG/2 ML VIAL IVP STA (15:11)
[2021-07-01] MEDS ORDERED: KETOROLAC 30 MG/ML VIAL IVP STA (15:11)
[2021-07-01] MEDS ORDERED: SODIUM CHLORIDE 0.9% 1,000 ML IV STA (15:11)
--- NOTE | 2021-07-01 15:18 | ED Physician Documentation ---
PD HPI HEADACHE - Stated complaint Stated Complaint: HEAD PAIN - Chief complaint Chief Complaint: Neuro - History obtained from History obtained from: Patient - History of Present Illness Timing - onset: How many days ago (8) Timing - onset during: Other (Is onset of the headache just after a lumbar puncture done at [facility] for evaluation of leg weakness. She continue with the headache inpatient for 2 days and was improved at rest but is continue with headache with sitting up or standing up despite use of Tylenol.) Timing - duration: Weeks (1) Timing - details: Abrupt onset, Still present, Waxing and waning (lessened when rested/lying down, worse with sitting up.) Worst headache ever?: Worst headache ever? (has had tension headaches, not really true migraine headaches in the past.) Location: Front, Global Quality: Throbbing Associated symptoms: Nausea, Weakness (had bilateral leg weakness prior to LP (reason for MRI/LP was to eval for MS/[place]/ paraspinal process) which has slightly improved the past week.). No: Fever, Stiff neck, Numbness Worsened by: Light, Noise Contributing factors: No: Anticoagulated, Recent illness Recently seen: Emergency Dept (Seen and [facility] for leg weakness and some extremity tremoring subsequent to upper respiratory infection treated with inhaler and steroids. Evaluated there and hospitalized for 2 days testing for neurologic problems.), Admitted, Other (The patient contacted [facility] hospitalists and anesthesia apparently in were told to come to the local ER here for possible blood patch.) Review of Systems Constitutional: denies: Fever, Chills, Myalgias Nose: denies: Rhinorrhea / runny nose, Congestion Throat: denies: Sore throat Respiratory: reports: Cough (mild irritation cough s/p viral URI few weeks ago.) GI: reports: Nausea (with headache), Vomiting (couple of times when headache worst.). denies: Diarrhea Neurologic: reports: Focal weakness (both legs for couple weeks, improving slowly.) PD PAST MEDICAL HISTORY - Past Medical History Cardiovascular: None Respiratory: None Neuro: None Endocrine/Autoimmune: None GI: Other (epigastric pains for months.) Psych: Anxiety - Past Surgical History Past Surgical History: No - Present Medications Home Medications: Ambulatory Orders Medication Instructions Recorded Confirmed Ethinyl Estradiol/Drospirenone 1 each PO DAILY 07/21/20 07/01/21 [Latoya 28 Tablet] Pantoprazole [Protonix] 40 mg PO DAILY 07/21/20 07/01/21 Sertraline [Zoloft] 75 mg PO DAILY 07/21/20 07/01/21 HYDROcod/ACETAM 5/325 [[place] 5/325] 1 ea PO Q6H PRN #18 tablet 07/01/21 Ondansetron Odt [Zofran] 4 mg TL Q6H PRN #10 tablet 07/01/21 methocarbamoL [Methocarbamol] 1,000 mg PO Q6HR PRN 07/01/21 07/01/21 - Allergies Allergies/Adverse Reactions: Allergies Allergy/AdvReac Type Severity Reaction Status Date / Time NSAIDS (Non-Steroidal AdvReac Emesis Verified 07/01/21 14:53 Anti-Inflamma - Social History Does the pt smoke?: No Smoking Status: Never smoker Does the pt have substance abuse?: No PD ED PE NORMAL - Vitals Vital signs reviewed: Yes - General General: Alert and oriented X 3, No acute distress, Well developed/nourished - HEENT HEENT: PERRL, EOMI - Neck Neck: Supple, no meningeal sign, No adenopathy - Cardiac Cardiac: RRR, No murmur - Respiratory Respiratory: Clear bilaterally - Abdomen Abdomen: Soft, Non tender - Back Back: No CVA TTP, No spinal TTP (has yellow/purple bruising at lumbar area. No redness/swelling/tenderness. ) - Derm Derm: Normal color, Warm and dry - Neuro Neuro: Alert and oriented X 3, psych social worker 2-12 intact, No sensory deficit, Normal speech, Other (mild weakness of both legs) Results - Vitals Vitals: Vital Signs - 24 hr 07/01/21 07/01/21 07/01/21 14:48 15:37 16:00 Temperature 36.2 C L Heart Rate 89 70 78 Respiratory 16 16 17 Rate Blood Pressure 144/71 H 125/74 115/66 O2 Saturation 100 100 100 07/01/21 18:00 Temperature Heart Rate 85 Respiratory 17 Rate Blood Pressure 119/65 O2 Saturation 98 Oxygen O2 Source Room air - Labs Labs: Laboratory Tests 07/01/21 15:18 Sodium 136 Potassium 3.5 Chloride 101 Carbon Dioxide 24 Anion Gap 11.0 BUN 7 Creatinine 0.7 Estimated GFR (MDRD) 100 Glucose 97 Calcium 9.0 Total Bilirubin 0.4 AST 20 ALT 24 Alkaline Phosphatase 54 C-Reactive Protein 2.0 H Total Protein 7.7 Albumin 3.7 Globulin 4.0 Albumin/Globulin Ratio 0.9 L Lipase 38 PD MEDICAL DECISION MAKING - ED course Complexity details: re-evaluated patient (Not really improved with medications targeted for migraine as well as IV fluids. I will talk with him and his deviation regarding possible blood patch or other modalities.), considered differential, d/w patient, d/w automation consultant (Consulted anesthesia and the on-call provider came and talked with the patient. Due to her leg weakness still remaining, the bread slicer machine was uncomfortable doing a blood patch as it be difficult to assess for side effects. The patient was understanding of this. She was offered nerve blocks.) ED course: Anesthesia provider on-call was uncomfortable with the blood patch because of the patient's persistent leg weakness (which was part of the evaluation or symptoms that the spinal tap was done for). Any side effects of the blood patch would be hard to discern because of that. The patient was understanding of this. She was offered sphenopalatine block I and this to test but it was being uncomfortable so it was stopped before completion. I suggested some occipital nerve blocks but patient was a bit reluctant at this point. I did offer her some ketamine low-dose at really just a pain medication dosing of 0.3/kg and the patient was good with trying that. I did order as the infusion over 40 minutes to minimize any side effects. Otherwise the patient will be discharged home to see how she does with the bit more time as well as the hydration and a prescription for some pain meds. Departure - Departure Disposition: 01 Home, Self Care Clinical Impression: Post-procedural headache Qualifiers: Encounter type: initial encounter Qualified Code(s): T81.89XA - Other complications of procedures, not elsewhere classified, initial encounter Condition: Stable Record reviewed to determine appropriate education?: Yes Instructions: ED Headache Post Spinal Tap No Patc Prescriptions: HYDROcod/ACETAM 5/325 [[place] 5/325] 1 ea PO Q6H PRN #18 tablet PRN Reason: Pain Ondansetron Odt [Zofran] 4 mg TL Q6H PRN #10 tablet PRN Reason: Nausea / Vomiting Comments: Try to remain well-hydrated. Use Tylenol every 4-6 hours if needed for mild headache or hydrocodone if needed for worse headache. Small cysts stool softener daily to help with side effects from pain medicines. You can use ondansetron if needed for nausea. Follow-up with your primary if still not improved over the next couple of days. If persistent symptoms, recontact the anesthesia department at [facility] for potential further follow-up. I transmitted your prescriptions to [facility] pharmacy in [place]. My narcotic instructions: I am prescribing a short course of narcotic pain medication for you. These are potentially dangerous and addictive medications that should be used carefully. These medications may constipate you. Take an [id number] stool softener such as docusate twice daily with plenty of water while taking these medications. If you go 24 hours without a bowel movement, take [id number] MiraLAX, per package instructions. Do not drink or drive while taking these medications. If you received narcotic or sedating medications while in the emergency department do not drive for 24 hours. Store this medication in a safe, secure place and out of reach of children. It is a violation of federal law to give or sell this medication to another person or to use in a manner other than prescribed. The ED will not refill narcotic prescriptions, including prescriptions lost or stolen. You can dispose of unwanted medications at the [facility]'s office or at several pharmacies such as [facility].
[2021-07-01 15:45] LABS: ALBUMIN 3.7 g/dL (3.2-5.5); ALBUMIN/GLOBULIN RATIO 0.9 (1.0-2.2); BILIRUBIN,TOTAL 0.4 mg/dL (0.2-1.0); CREATININE 0.7 mg/dL (0.4-1.0); POTASSIUM 3.5 mmol/L (3.5-5.0); TOTAL PROTEIN 7.7 g/dL (6.7-8.2)
[2021-07-01] MEDS ORDERED: HYDROmorphone 1 MG/ML CARPUJECT IVP STA (15:54)
[2021-07-01] MEDS ORDERED: KETAMINE 25 MG in SODIUM CHLORIDE 0.9% 100ML 100 ML IV STA (17:22)
[2021-07-01] MEDS ORDERED: HYDROcod/ACET 5/325 Prepack 4 PO STA (17:24)
--- NOTE | 2021-07-01 17:24 | CONSULTATION NOTE ---
Consultation Report: Asked to consult on patient who presented to ER with c/o headache. She has been having leg weakness after a viral illness and was seen at [facility] last week. She received an MRI (normal) and dural puncture. She reports frontal headache that worsens when in upright position and relieved when supine. She has continued to have leg weakness. I discussed treatment options with the patient but did not feel epidural blood patch would be appropriate due to her ongoing leg weakness of unknown etiology. Offered sphenopalatine ganglion block to relieve headache. Risks and benefits discussed and patient agreed to proceed. Patient was placed in a supine position and a cotton tipped applicator was inserted 1/2 inch into right nostril. Patient was unable to tolerate any further advancement even after localization with 1-2ml of 2% lidocaine. Patient did not wish to proceed any further, so applicator was removed. Discussed care with Dr. Flores. If available, an IV dose of cosyntopin is an option.
[2021-07-01] MEDS ORDERED: ONDANSETRON 4 MG/2 ML VIAL IVP STA (19:20)
[2021-07-01 20:19] VITALS: BP 108/65
== END 2021-07-01 20:19 | disposition home or self-care (01) ==
LOC: ED 14:43
DX: T81.89XA Other complications of procedures, not elsewhere classified, initial encounter (principal)
CPT/HCPCS: 36415; 80053; 83690; 86140; 96365; 96375; 99284; 99285; J1170

== ENCOUNTER 2022-03-08 15:26 | Outpatient (CLI) | payer OTHER ==
[2022-03-08 17:39] LABS: BASOPHILS # (AUTO) 0.1 10^3/uL (0.0-0.1); BASOPHILS % (AUTO) 0.9 %; EOSINOPHILS # (AUTO) 0.4 10^3/uL (0.0-0.7); EOSINOPHILS % (AUTO) 5.2 %; HCT - HEMATOCRIT 40.1 % (37.0-47.0); HGB - HEMOGLOBIN 12.5 g/dL (12.0-16.0); LYMPHOCYTES # (AUTO) 2.1 10^3/uL (1.5-3.5); LYMPHOCYTES % (AUTO) 26.3 %; MEAN CORPUSCULAR HEMOGLOBIN 25.3 pg (27.0-31.0); MEAN CORPUSCULAR HGB CONC 31.2 g/dL (32.0-36.0); MEAN CORPUSCULAR VOLUME 81.2 fL (81.0-99.0); MEAN PLATELET VOLUME 9.3 fL (7.9-10.8); MONOCYTES # (AUTO) 0.5 10^3/uL (0.0-1.0); MONOCYTES % (AUTO) 6.2 %; NEUTROPHILS % (AUTO) 61.2 %; PLT - PLATELET COUNT 430 10^3/uL (130-450); RED BLOOD COUNT 4.94 10^6/uL (4.20-5.40); WHITE BLOOD COUNT 8.1 x10^3/uL (4.8-10.8)
[2022-03-08 18:00] LABS: ALBUMIN 3.7 g/dL (3.2-5.5); ALBUMIN/GLOBULIN RATIO 0.7 (1.0-2.2); BILIRUBIN,TOTAL 0.4 mg/dL (0.2-1.0); CALCIUM 9.2 mg/dL (8.5-10.3); CREATININE 0.6 mg/dL (0.4-1.0); CRP - C-REACTIVE PROTEIN 2.1 mg/dL (0-1.0); POTASSIUM 3.8 mmol/L (3.5-5.0); TOTAL PROTEIN 8.9 g/dL (6.7-8.2)
== END 2022-03-08 15:27 | disposition home or self-care (01) ==
LOC: LAB.N 15:26
PROVIDERS: ATTEND Registered Nurse
DX: R21 Rash and other nonspecific skin eruption (principal)
CPT/HCPCS: 36415; 80053; 85025; 86140

== ENCOUNTER 2022-03-19 16:46 | Emergency (ER) | payer OTHER ==
[2022-03-19 17:20] LABS: BASOPHILS # (AUTO) 0.1 10^3/uL (0.0-0.1); BASOPHILS % (AUTO) 0.6 %; EOSINOPHILS # (AUTO) 0.3 10^3/uL (0.0-0.7); HCT - HEMATOCRIT 39.2 % (37.0-47.0); HGB - HEMOGLOBIN 12.2 g/dL (12.0-16.0); LYMPHOCYTES # (AUTO) 3.1 10^3/uL (1.5-3.5); LYMPHOCYTES % (AUTO) 27.3 %; MEAN CORPUSCULAR HEMOGLOBIN 25.4 pg (27.0-31.0); MEAN CORPUSCULAR HGB CONC 31.1 g/dL (32.0-36.0); MEAN CORPUSCULAR VOLUME 81.5 fL (81.0-99.0); MEAN PLATELET VOLUME 8.2 fL (7.9-10.8); MONOCYTES % (AUTO) 8.7 %; NEUTROPHILS # (AUTO) 6.9 10^3/uL (1.5-6.6); NEUTROPHILS % (AUTO) 59.8 %; PLT - PLATELET COUNT 535 10^3/uL (130-450); RED BLOOD COUNT 4.81 10^6/uL (4.20-5.40); RED CELL DISTRIBUTION WIDTH 15.2 % (12.0-15.0); WHITE BLOOD COUNT 11.5 x10^3/uL (4.8-10.8)
[2022-03-19 17:33] LABS: ALBUMIN 3.8 g/dL (3.2-5.5); ALBUMIN/GLOBULIN RATIO 0.8 (1.0-2.2); BILIRUBIN,TOTAL 0.6 mg/dL (0.2-1.0); CALCIUM 8.9 mg/dL (8.5-10.3); CREATININE 0.7 mg/dL (0.4-1.0); POTASSIUM 3.8 mmol/L (3.5-5.0); TOTAL PROTEIN 8.8 g/dL (6.7-8.2)
[2022-03-19 18:16] LABS: BILIRUBIN,URINE NEGATIVE (NEGATIVE); GLUCOSE, URINE (UA) NEGATIVE (NEGATIVE); KETONES,URINE (UA) NEGATIVE (NEGATIVE); LEUKOCYTE ESTERASE, URINE TRACE (NEGATIVE); NITRITE,URINE NEGATIVE (NEGATIVE); OCCULT BLOOD,URINE NEGATIVE (NEGATIVE); PROTEIN,URINE NEGATIVE (NEGATIVE); UROBILINOGEN,URINE 0.2 (NORMAL) E.U./dL (NORMAL)
[2022-03-19 18:21] LABS: CLARITY,URINE HAZY (CLEAR)
[2022-03-19 18:22] LABS: HCG UR QUAL NEGATIVE
[2022-03-19 18:32] LABS: BACTERIA,URINE Few /HPF (None Seen); RBC,URINE 0-5 /HPF (0-5); SQUAMOUS EPITHELIAL CELL,UR FEW Squamous (<= Few); WBC,URINE 0-3 /HPF (0-5)
[2022-03-19] MEDS ORDERED: HYDROmorphone 1 MG/ML CARPUJECT IVP STA (18:32)
[2022-03-19] MEDS ORDERED: SODIUM CHLORIDE 0.9% 1,000 ML IV STA (18:32)
--- NOTE | 2022-03-19 18:35 | ED Physician Documentation ---
History of Present Illness - Stated complaint Stated Complaint: FEMALE - Chief complaint Chief Complaint: Abd Pain - Additonal information Additional information: 27-year-old female presents emergency department for evaluation of sudden onset right lower quadrant abdominal pain that began yesterday afternoon while walking. No history of similar in the past. She is had no fevers or vomiting but the pain is described as severe. She feels like she is not passing gas and has been unable to defecate. She denies dysuria until she gave the sample here in the emergency department. No hematuria. 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 For this she is under experimental treatment at [facility] with sche duled IgG treatments. She does need to walk with the use of a walker. Because of the SNF she often will find pains that she does not expect as well as significant constipation. Review of Systems Constitutional: denies: Fever, Chills Nose: reports: Reviewed and negative Throat: reports: Reviewed and negative Cardiac: reports: Reviewed and negative Respiratory: reports: Reviewed and negative GI: reports: Abdominal Pain, Nausea. 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 : None HEENT: None Psych: Anxiety Musculoskeletal: None Derm: None - Past Surgical History Past Surgical History: No General: EGD - Present Medications Home Medications: Ambulatory Orders Medication Instructions Recorded Confirmed Ethinyl Estradiol/Drospirenone 1 each PO DAILY 07/21/20 07/01/21 [Latoya 28 Tablet] Pantoprazole [Protonix] 40 mg PO DAILY 07/21/20 07/01/21 Sertraline [Zoloft] 75 mg PO DAILY 07/21/20 07/01/21 HYDROcod/ACETAM 5/325 [[place] 5/325] 1 ea PO Q6H PRN #18 tablet 07/01/21 Ondansetron Odt [Zofran] 4 mg TL Q6H PRN #10 tablet 07/01/21 methocarbamoL [Methocarbamol] 1,000 mg PO Q6HR PRN 07/01/21 07/01/21 - Allergies Allergies/Adverse Reactions: Allergies Allergy/AdvReac Type Severity Reaction Status Date / Time NSAIDS (Non-Steroidal AdvReac Emesis Verified 03/19/22 17:08 Anti-Inflamma - Social History Does the pt smoke?: No Smoking Status: Never smoker Does the pt drink ETOH?: Yes Does the pt have substance abuse?: No - Immunizations Immunizations are current?: Yes PD ED PE NORMAL - General General: Alert and oriented X 3, No acute distress, Well developed/nourished - HEENT HEENT: Atraumatic, Moist mucous membranes - Neck Neck: Supple, no meningeal sign, No adenopathy - Cardiac Cardiac: RRR, No murmur - Respiratory Respiratory: No respiratory distress, Clear bilaterally - Abdomen Abdomen: Normal bowel sounds, Soft. No: Non tender (Mild tenderness right lower quadrant. Negative guarding negative rebound. No tenderness elicited in the right upper or left lower abdomen) - Back Back: No CVA TTP, No spinal TTP - Derm Derm: Warm and dry - Extremities Extremities: No deformity - Neuro Neuro: Alert and oriented X 3, desk assistant 2-12 intact Eye Opening: Spontaneous Motor: Obeys Commands Verbal: Oriented GCS Score: 15 Results - Vitals Vitals: Vital Signs - 24 hr 03/19/22 03/19/22 03/19/22 17:04 17:07 19:07 Temperature 36.8 C 36.8 C Heart Rate 113 H 113 H 88 Respiratory 20 20 16 Rate Blood Pressure 139/81 H 139/81 H 117/68 O2 Saturation 99 99 99 Oxygen O2 Source Room air - Labs Labs: Laboratory Tests 03/19/22 03/19/22 03/19/22 17:16 17:16 18:05 WBC 11.5 H RBC 4.81 Hgb 12.2 Hct 39.2 MCV 81.5 MCH 25.4 L MCHC 31.1 L RDW 15.2 H Plt Count 535 H MPV 8.2 Neut # (Auto) 6.9 H Lymph # (Auto) 3.1 [place] # (Auto) 1.0 Eos # (Auto) 0.3 Baso # (Auto) 0.1 Absolute Nucleated RBC 0.00 Nucleated RBC % 0.0 Sodium 134 L Potassium 3.8 Chloride 101 Carbon Dioxide 22 Anion Gap 11.0 BUN 13 Creatinine 0.7 Estimated GFR (MDRD) 99 Glucose 86 Calcium 8.9 Total Bilirubin 0.6 AST 15 ALT 13 Alkaline Phosphatase 65 Total Protein 8.8 H Albumin 3.8 Globulin 5.0 H Albumin/Globulin Ratio 0.8 L Lipase 40 Urine Color YELLOW Urine Clarity HAZY Urine pH 6.0 Ur Specific [place] 1.015 Urine Protein NEGATIVE Urine Glucose (UA) NEGATIVE Urine Ketones NEGATIVE Urine Occult Blood NEGATIVE Urine Nitrite NEGATIVE Urine Bilirubin NEGATIVE Urine Urobilinogen 0.2 (NORMAL) Ur Leukocyte Esterase TRACE H Urine RBC 0-5 Urine WBC 0-3 Ur Squamous Epith Cells FEW Squamous Urine Bacteria Few Ur Microscopic Review INDICATED Urine Culture Comments INDICATED Urine HCG, Qual NEGATIVE - Rads (name of study) CT abd Radiology: Final report received (No acute abnormalities in abdomen or pelvis. Normal appendix. Cause for right lower quadrant pain not definitively identified. 3 mm nonobstructing left renal stone.) PD MEDICAL DECISION MAKING - ED course Complexity details: reviewed results, re-evaluated patient, considered differential, d/w patient ED course: 27-year-old female presents emergency department for evaluation of a few days right lower quadrant abdominal pain. Also reporting constipation. No fevers or vomiting. No true dysuria. She is being treated for small nerve fiber neuropathy through [facility] and is scheduled to receive an IgG treatment upcoming. On presentation she had some mild right lower quadrant pain but no guarding or rebound. Her vital signs here in the emergency department were unremarkable. CBC showed no leukocytosis. Her electrolytes were unremarkable. Urine did not show signs of infection. She is not . A CT of the abdomen was completed and there are no findings to suggest ovarian cysts or acute appendicitis. I do see a fair amount of stool within the colon. I discussed this finding with the patient. She has been bloated and constipated for a few days which may simply be a cause of the pain. I making the recommendation that she take MiraLAX for constipation. If symptoms not markedly better or worsening over the next 48 to 72 hours she will return to the ER for repeat evaluation. Departure - Departure Disposition: 01 Home, Self Care Clinical Impression: Right lower quadrant abdominal pain Constipation Qualifiers: Constipation type: other constipation type Qualified Code(s): K59.09 - Other constipation Condition: Stable Record reviewed to determine appropriate education?: Yes Comments: Digna you are seen today in the emergency department because you develop pain in the right lower quadrant of your abdomen yesterday. You have also been bloated and constipated recently. In the emergency department your blood work is essentially normal with no worrisome findings. We did do a CT of the abdomen that did not show anything to suggest appendicitis. There were no obvious cysts on the ovaries. You do have an incidental finding of a left kidney stone that is 3 mm. I would expect this to pass easily should you ever passed it. The cause of your symptoms is not clear though the CAT scan did show a large amount of stool present throughout your colon including the ascending colon which is on the right side. I recommend that you take MiraLAX 2-3 doses a day until you have 3 or 4 watery bowel movements. If you find that despite resolving the constipation your symptoms are not better, you develop fevers, have uncontrolled vomiting then please return immediately to the ER for second e valuation.
[2022-03-19 19:12] VITALS: BP 117/68
--- NOTE | 2022-03-19 20:29 | CT Report ---
PROCEDURE: ABDOMEN/PELVIS WO INDICATIONS: Pt reports increasing RLQ abd pain w/ nausea x yesterday TECHNIQUE: Noncontrast 5 mm thick sections acquired from the diaphragms to the symphysis. 5 mm coronal and sagi ttal reformats were then performed. For radiation dose reduction, the following was used: automated exposure control, adjustment of mA and/or kV according to patient size. COMPARISON: CT abdomen and pelvis with, 11/29/2020. FINDINGS: Image quality: Excellent. ABDOMEN: Lung bases: Lung bases are clear. Heart size is normal. Solid organs: Liver and spleen are normal in size. Gallbladder is normal. Pancreas is normal in co ntours. No adrenal nodules. There is a 3 mm nonobstructive stone in left kidney. No hydronephrosis. Kidneys are normal in size. Peritoneum and bowel: Appendix is normal. Unenhanced bowel loops demonstrate normal wall thickness a nd caliber. No free fluid or air. Nodes and vessels: No retroperitoneal or mesenteric adenopathy by size criteria. Aorta and inferior vena cava are normal in caliber. Miscellaneous: No ventral hernias. PELVIS: Genitourinary: Bladder wall thickness is normal. Miscellaneous: No inguinal hernias or adenopathy. Bones: There is a sclerotic focus in the anterior aspect of L4 abutting the inferior endplate, most l ikely related to degenerative disc disease or a bone island. No vertebral body compression fractures . IMPRESSION: 1. No acute abnormalities in abdomen or pelvis. 2. Normal appendix. A cause for right lower quadrant pain is not definitively identified. 3. A 3 mm nonobstructive left renal stone. Reviewed by: Queenie Tam MD on 03/19/2022 8:28 PM PDT Approved by: Queenie Tam MD on 03/19/2022 8:28 PM PDT Station ID: [id number]
== END 2022-03-19 20:50 | disposition home or self-care (01) ==
LOC: ED 16:46
DX: K59.09 Other constipation (principal); N20.0 Calculus of kidney; G62.89 Other specified polyneuropathies
CPT/HCPCS: 36415; 74176; 80053; 81001; 81025; 83690; 85025; 87086; 96361; 96374; 99282; 99284; J1170; 81003

== ENCOUNTER 2022-10-05 11:39 | Emergency (ER) | payer OTHER ==
--- NOTE | 2022-10-05 12:09 | XRAY Report ---
PROCEDURE: Chest 1 View X-Ray INDICATIONS: Chest pain TECHNIQUE: One view of the chest was acquired. COMPARISON: None. FINDINGS: Surgical changes and devices: None. Lungs and pleura: No pleural effusions or pneumothorax. Lungs are clear. Mediastinum: Mediastinal contours appear normal. Heart size is normal. Bones and chest wall: No suspicious bony lesions. Overlying soft tissues appear unremarkable. IMPRESSION: No acute cardiopulmonary process. Reviewed by: Yahir Monsivais on 10/05/2022 12:07 PM PDT Approved by: Yahir Monsivais on 10/05/2022 12:07 PM PDT Station ID: [id number]
[2022-10-05 12:12] LABS: BASOPHILS # (AUTO) 0.1 10^3/uL (0.0-0.1); BASOPHILS % (AUTO) 0.6 %; EOSINOPHILS # (AUTO) 0.1 10^3/uL (0.0-0.7); EOSINOPHILS % (AUTO) 1.4 %; HCT - HEMATOCRIT 37.7 % (37.0-47.0); HGB - HEMOGLOBIN 11.9 g/dL (12.0-16.0); LYMPHOCYTES # (AUTO) 1.9 10^3/uL (1.5-3.5); LYMPHOCYTES % (AUTO) 24.9 %; MEAN CORPUSCULAR HEMOGLOBIN 25.4 pg (27.0-31.0); MEAN CORPUSCULAR HGB CONC 31.6 g/dL (32.0-36.0); MEAN CORPUSCULAR VOLUME 80.6 fL (81.0-99.0); MEAN PLATELET VOLUME 8.5 fL (7.9-10.8); MONOCYTES # (AUTO) 0.4 10^3/uL (0.0-1.0); MONOCYTES % (AUTO) 5.1 %; NEUTROPHILS # (AUTO) 5.2 10^3/uL (1.5-6.6); NEUTROPHILS % (AUTO) 67.7 %; PLT - PLATELET COUNT 487 10^3/uL (130-450); RED BLOOD COUNT 4.68 10^6/uL (4.20-5.40); RED CELL DISTRIBUTION WIDTH 14.9 % (12.0-15.0); WHITE BLOOD COUNT 7.7 x10^3/uL (4.8-10.8)
[2022-10-05 12:30] LABS: ALBUMIN 3.4 g/dL (3.2-5.5); ALBUMIN/GLOBULIN RATIO 0.7 (1.0-2.2); BILIRUBIN,TOTAL 0.2 mg/dL (0.2-1.0); CALCIUM 8.6 mg/dL (8.5-10.3); CREATININE 0.7 mg/dL (0.4-1.0); POTASSIUM 3.5 mmol/L (3.5-5.0)
--- NOTE | 2022-10-05 12:45 | ED Physician Documentation ---
PD HPI CHEST PAIN - Stated complaint Stated Complaint: CHEST PX - Chief complaint Chief Complaint: Critical Care - History obtained from History obtained from: Patient - History of Present Illness Timing - onset: Today, Yesterday Timing - onset during: Light activity Timing - duration: Minutes Timing - details: Still present (she now started with chest pain sharply anterior chest the past 1-2 hours and feeling of lightheaded. Not dyspnea per se.), Intermittant (she has had feeling of lightheadedness and states syncope twice yesterday c/w flare of her POTS. the fainting was not distinctly postural though.) Quality: Aching, Sharp, Pain Location: Substernal, Left chest Radiation: Back. No: Jaw, Neck Improved by: No: Rest Worsened by: Movement, Palpation. No: Inspiration Associated symptoms: Feeling faint / dizzy, General Weakness. No: Shortness of air Similar symptoms before: Diagnosis (feeling like episodes of POTS flare ups in the past. 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 denies: Fever, Chills Nose: reports: Congestion. denies: Rhinorrhea / runny nose Throat: denies: Sore throat Cardiac: reports: Chest pain / pressure. denies: Palpitations, Pedal edema, Calf pain Respiratory: denies: Cough GI: reports: Nausea. denies: Abdominal Pain, Vomiting, Diarrhea Skin: denies: Rash, Lesions PD PAST MEDICAL HISTORY - Past Medical History Cardiovascular: None Respiratory: None Neuro: Other (POTS; also peripheral neuropathy being followed by Neurologist. 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 : None HEENT: None Psych: Anxiety Musculoskeletal: None, Other (autoimmune disorder, being evaluated.) Derm: None - Past Surgical History Past Surgical History: No General: EGD - Present Medications Home Medications: Ambulatory Orders Medication Instructions Recorded Confirmed Ethinyl Estradiol/Drospirenone 1 each PO DAILY 07/21/20 07/01/21 [Latoya 28 Tablet] Pantoprazole [Protonix] 40 mg PO DAILY 07/21/20 07/01/21 Sertraline [Zoloft] 75 mg PO DAILY 07/21/20 07/01/21 HYDROcod/ACETAM 5/325 [[place] 5/325] 1 ea PO Q6H PRN #18 tablet 07/01/21 Ondansetron Odt [Zofran] 4 mg TL Q6H PRN #10 tablet 07/01/21 methocarbamoL [Methocarbamol] 1,000 mg PO Q6HR PRN 07/01/21 07/01/21 Potassium Bicarbonate 25 meq PO DAILY #15 tablet 10/05/22 [K-Effervescent] dexAMETHasone [Decadron] 4 mg PO DAILY #5 tablet 10/05/22 - Allergies Allergies/Adverse Reactions: Allergies Allergy/AdvReac Type Severity Reaction Status Date / Time NSAIDS (Non-Steroidal AdvReac Emesis Verified 10/05/22 11:46 Anti-Inflamma - Social History Does the pt smoke?: No Smoking Status: Never smoker Does the pt drink ETOH?: Yes Does the pt have substance abuse?: No - Immunizations Immunizations are current?: Yes PD ED PE NORMAL - Vitals Vital signs reviewed: Yes - General General: Alert and oriented X 3, No acute distress, Well developed/nourished - Neck Neck: Supple, no meningeal sign, No adenopathy - Cardiac Cardiac: RRR, No murmur, No rub - Respiratory Respiratory: No respiratory distress, Clear bilaterally, Other (left parasternal cheswall tenderness at cartilage.) - Abdomen Abdomen: Soft, Non tender - Derm Derm: Normal color, Warm and dry - Extremities Extremities: Normal ROM s pain, No edema, No calf tenderness / cord - Neuro Neuro: Alert and oriented X 3, No motor deficit, Normal speech Results - Vitals Vitals: Vital Signs - 24 hr 10/05/22 10/05/22 10/05/22 11:43 12:46 13:40 Temperature 36.3 C L Heart Rate 85 78 83 Respiratory 16 16 15 Rate Blood Pressure 136/83 H 120/81 H 116/78 O2 Saturation 100 100 98 Oxygen O2 Source Room air - EKG (time done) 11:48 EKG releavant findings:: EKG personally interpreted by author of this note. Relevant findings are: Rate: Rate (enter#) (76) Rhythm: NSR [place]: Normal Intervals: Normal [place] QRS: Normal Ischemia: Normal ST segments. No: ST elevation c/w ischemia, ST depression - Labs Labs: Laboratory Tests 10/05/22 10/05/22 10/05/22 12:07 12:07 12:07 WBC 7.7 RBC 4.68 Hgb 11.9 L Hct 37.7 MCV 80.6 L MCH 25.4 L MCHC 31.6 L RDW 14.9 Plt Count 487 H MPV 8.5 Neut # (Auto) 5.2 Lymph # (Auto) 1.9 [place] # (Auto) 0.4 Eos # (Auto) 0.1 Baso # (Auto) 0.1 Absolute Nucleated RBC 0.00 Nucleated RBC % 0.0 Sodium 135 Potassium 3.5 Chloride 103 Carbon Dioxide 24 Anion Gap 8.0 BUN 11 Creatinine 0.7 Estimated GFR (MDRD) 99 Glucose 97 Calcium 8.6 Magnesium Total Bilirubin 0.2 AST 17 ALT 16 Alkaline Phosphatase 56 Troponin I High Sens < 2.3 L Total Protein 8.0 Albumin 3.4 Globulin 4.6 H Albumin/Globulin Ratio 0.7 L Lipase 36 10/05/22 12:07 WBC RBC Hgb Hct MCV MCH MCHC RDW Plt Count MPV Neut # (Auto) Lymph # (Auto) [place] # (Auto) Eos # (Auto) Baso # (Auto) Absolute Nucleated RBC Nucleated RBC % Sodium Potassium Chloride Carbon Dioxide Anion Gap BUN Creatinine Estimated GFR (MDRD) Glucose Calcium Magnesium 1.6 L Total Bilirubin AST ALT Alkaline Phosphatase Troponin I High Sens Total Protein Albumin Globulin Albumin/Globulin Ratio Lipase - Rads (name of study) chest xray Relevant Findings:: Prelim report reviewed, EMP independent interpretation of test (no acute process), See rad report PD Medical Decision Making - ED course Complexity details: reviewed results, considered differential (generally having some early viral type symptoms. This seems to be affecting her POTS. She described other various historical syndromes and current symptoms that would fit in likely functional neurologic disorder categories. I do not get sense of ACS, IL, PE, nor pneumonia based on current labs/tests), d/w patient Departure - Departure Disposition: 01 Home, Self Care Clinical Impression: Anterior chest wall pain Chest pain Qualifiers: Chest pain type: precordial pain Qualified Code(s): R07.2 - Precordial pain Condition: Stable Record reviewed to determine appropriate education?: Yes Instructions: ED Chest Pain Costochondritis Follow-Up: WILDER NEELY, [Primary Care Provider] - Prescriptions: dexAMETHasone [Decadron] 4 mg PO DAILY #5 tablet Potassium Bicarbonate [K-Effervescent] 25 meq PO DAILY #15 tablet Comments: Your EKG and chest x-ray and blood test called troponin are normal. No signs of heart muscle injury/heart attack. No signs of lung cause for your pain. You do have some tenderness in the chest wall so consideration would be some inflammation of the cartilage of the chest called costochondritis. This, it would be treated with some anti-inflammatories. Given your reflux, its reasonable to avoid NSAIDs. Typically will be able to do okay with a short course steroid or anti-inflammatory to try to help with this. Decadron daily for 5 days. If you find this increasing your reflux, then you can discontinue. Tylenol every 4-6 hours if needed for pains. Continue your other usual medicines. Otherwise on your blood test your potassium level is just at the low end of normal at 3.5. Typically would be better with that at midrange levels so would suggest a potassium supplement or high potassium foods for the next week or 2. This will hopefully help with less of the POTS symptoms. Follow-up with your primary care. I sent your prescription to [facility] pharmacy. Discharge Date/Time: 10/05/22 13:46
[2022-10-05] MEDS ORDERED: POTASSIUM BICARB 25 MEQ TABLET PO STA (13:12)
[2022-10-05] MEDS ORDERED: ACETAMINOPHEN 325 MG TABLET PO STA (13:12)
[2022-10-05] MEDS ORDERED: DEXAMETHASONE 10 MG/ML VIAL IVP STA (13:12)
[2022-10-05] MEDS ORDERED: DEXAMETHASONE 10 MG/ML VIAL PO STA (13:22)
[2022-10-05] MEDS ORDERED: CHERRY SYRUP 10 ML UDC PO ONE (13:22)
[2022-10-05 13:41] VITALS: BP 116/78
== END 2022-10-05 13:46 | disposition home or self-care (01) ==
LOC: ED 11:39
DX: R07.9 Chest pain, unspecified (principal); R07.89 Other chest pain; E87.6 Hypokalemia; G90.A Postural orthostatic tachycardia syndrome [POTS]
CPT/HCPCS: 36415; 71045; 80053; 83690; 83735; 84484; 85025; 93005; 99284; A9270